=== PATIENT | female | born 1955 | race Caucasian/White ===

== ENCOUNTER 2020-12-31 21:53 | Emergency (ER) | payer OTHER ==
[~2020-12-31] VITALS: Ht 167.6 cm; Wt 73.0 kg
[2020-12-31] MEDS ORDERED: KETOROLAC 60MG/2ML VIAL IM ONE (23:15)
[2021-01-01] MEDS ORDERED: IBUP-2029 MT (00:55)
[2021-01-01 01:00] VITALS: BP 130/64
== END 2021-01-01 01:08 | disposition home or self-care (01) ==
LOC: ER 21:53
DX: M71.21 Synovial cyst of popliteal space [Baker], right knee (principal)
CPT/HCPCS: 93970; 96372; 99284; J1885